=== PATIENT | female | born 1975 | race Caucasian/White ===

== ENCOUNTER 2020-12-23 22:32 | Emergency (ER) | payer OTHER ==
[2020-12-23 22:46] VITALS: BP 123/83; PULSE 74; TEMP 98; BMI 27.5
== END 2020-12-24 11:20 | disposition home or self-care (01) ==
LOC: JERFT 22:32 → JER 22:32 → JERFT 12-24 11:20
DX: S00.96XA Insect bite (nonvenomous) of unspecified part of head, initial encounter (principal)
CPT/HCPCS: 99281-25

== ENCOUNTER 2021-01-06 02:53 | Emergency (ER) | payer OTHER ==
[2021-01-06 03:11] VITALS: BMI 29.7
[2021-01-06 04:04] LABS: PH,URINE 8.5 (5.0-8.0); URINE APPEARANCE CLEAR; URINE BILIRUBIN NEGATIVE (NEGATIVE); URINE COLOR YELLOW; URINE GLUCOSE (UA) NEGATIVE (NEGATIVE); URINE KETONE NEGATIVE (NEGATIVE); URINE LEUK ESTERASE NEGATIVE (NEGATIVE); URINE NITRITE NEGATIVE (NEGATIVE); URINE PROTEIN NEGATIVE (NEGATIVE)
[2021-01-06 04:05] LABS: HCG,QUALITATIVE URINE Negative
[2021-01-06] MEDS ORDERED: LACTATED RINGERS SOLUTION 1000 ML INFUS.BAG IV ONE (04:14)
[2021-01-06] MEDS ORDERED: ACETAMINOPHEN 1000 MG/100 ML VIAL (NON FORMULARY) IVPB ONE (04:14)
[2021-01-06] MEDS ORDERED: ACETAMINOPHEN 325 MG TABLET (FP) PO ONE (04:16)
[2021-01-06] MEDS ORDERED: ACETAMINOPHEN 325 MG TABLET (FP) ONE (04:17)
[2021-01-06 05:20] VITALS: BP 100/57; PULSE 79
[2021-01-06 06:22] LABS: BASO % 0.4 % (0-2.0); HEMATOCRIT 34.9 % (32.4-45.2); HEMOGLOBIN 12.3 GM/dL (10.7-15.3); MCH 33.3 pg (25.7-33.7); MCHC 35.2 g/dl (32.0-36.0); MEAN CELL VOLUME 94.6 fl (80-96); MEAN PLT VOLUME 10.7 fl (7.5-11.1); MONO % 8.5 % (3.8-10.2); NEUT % 73.1 % (42.8-82.8); PLATELET COUNT 92 K/MM3 (134-434); RBC 3.69 M/mm3 (3.60-5.2); RDW 12.7 % (11.6-15.6); WHITE BLOOD COUNT 2.4 K/mm3 (4.0-10.0)
[2021-01-06 06:42] LABS: ALBUMIN 3.3 g/dl (3.4-5.0); CALCIUM 8.3 mg/dL (8.5-10.1)
[2021-01-06 06:43] LABS: BLOOD UREA NITROGEN 4.8 mg/dL (7-18)
[2021-01-06 06:46] LABS: CREATININE 0.6 mg/dL (0.55-1.3)
[2021-01-06 06:47] LABS: BILIRUBIN,TOTAL 0.4 mg/dL (0.2-1); TOT PROT 6.8 g/dl (6.4-8.2)
[2021-01-06 06:58] VITALS: TEMP 99.4
[2021-01-08 14:11] LABS: E.chaff HME IgG Negative (Neg:<1:64)
[2021-01-08 16:10] LABS: BABESIA MICROTI ANTIBODY IGG <1:10 (Neg:<1:10); BABESIA MICROTI ANTIBODY IGM <1:10 (Neg:<1:10)
== END 2021-01-06 11:00 | disposition home or self-care (01) ==
LOC: JER 02:53
DX: R50.9 Fever, unspecified (principal); B34.9 Viral infection, unspecified
CPT/HCPCS: 36415; 71046-TC-FY; 80053; 81003; 84703; 85025; 86618; 86666; 86753; 87040; 87086; 87804; 99284-25; C9803; U0003; U0005